=== PATIENT | male | born 1990 | race Caucasian/White ===

== ENCOUNTER 2019-05-14 09:06 | Emergency (ER) | payer OTHER, SELFPAY ==
[2019-05-14 09:15] VITALS: BP 138/87; PULSE 82; RESP 18; TEMP 36.7; O2SAT 100
--- NOTE | 2019-05-14 09:32 | ED.URI ---
HPI - URI/Sore Throat General Chief Complaint: Upper Respiratory Infection Stated Complaint: cough History of Present Illness HPI Narrative: This is a 29-year-old male comes in complaining of having a cough patient states that the cough is more so at nighttime and he has a first thing when he wakes up in the morning it may be intermittently not consistently patient states that he when he does go into a coughing spell he does have some shortness of breath patient is currently a pack-a-day smoker denies any fever nausea vomiting diarrhea has not been out of the country. Related Data Home Medications Medication Instructions Recorded Confirmed lisinopril 20 mg PO DAILY 02/23/19 02/23/19 Allergies Allergy/AdvReac Type Severity Reaction Status Date / Time No Known Allergies Allergy Verified 02/23/19 08:47 Review of Systems Review of Systems: Narrative: CONSTITUTIONAL: Denies fever, chills, or sweats. EYES: Denies visual changes, redness, or discharge. ENT: Denies rhinorrhea, congestion, sore throat, or otalgia. CARDIOVASCULAR:Denies chest pain, palpitations, or edema. RESPIRATORY: Reports cough or dyspnea. GASTROINTESTINAL: Denies abdominal pain, nausea, vomiting, or diarrhea. GENITOURINARY: Denies dysuria or hematuria. SKIN:[Denies rash or itching. MUSCULOSKELETAL:Denies back pain, joint pain, or myalgia. NEUROLOGIC: Denies headache, numbness, or weakness. PSYCHIATRIC:Denies anxiety or depression PMF Past Medical History Medical History (Updated 05/14/19 @ 09:50 by Cody Miramontes NP) HTN (hypertension) Social History Social History (Updated 02/23/19 @ 08:52 by SOWMYA Jauregui) Smoking packs per day: 0.5 Smoking cigarettes per day: 10.0 Smoking status: Current every day smoker Comments At time as signature, I have reviewed and agree with nursing past medical, social, surgical and family history. Please see nursing chart for further information. There is no relevant family history pertinent to the presenting complaint. Exam Narrative: Exam Narrative: GENERAL:Well-appearing, well-nourished, and in no acute distress. HEAD:Normocephalic, atraumatic. EYES: PERRLA and EOMI. ENT: Nares clear, no rhinorrhea or epistaxis. Mucous membranes moist. Pharyngeal erythema pale boggy turbinate bilateral nares NECK: Supple. CHEST: Clear to auscultation. No respiratory distress. HEART: Regular rate and rhythm. No murmur heard. Normal peripheral pulses. ABDOMEN: Soft, nontender, nondistended, normal active bowel sounds. EXTREMITIES: Normal range of motion. No edema. SKIN: Warm, dry, no rash. NEURO: No focal deficits. Alert and oriented x3. Course Vital Signs Vital signs: Vital Signs Temperature 98.0 F 05/14/19 09:15 Pulse Rate 82 05/14/19 09:15 Respiratory Rate 18 05/14/19 09:15 Blood Pressure 138/87 05/14/19 09:15 Pulse Oximetry 100 05/14/19 09:15 Temperature 98.0 F 05/14/19 09:15 Pulse Rate 82 05/14/19 09:15 Respiratory Rate 18 05/14/19 09:15 Blood Pressure 138/87 05/14/19 09:15 Pulse Oximetry 100 05/14/19 09:15 MDM - URI/Sore Throat Differential Diagnosis Differential diagnosis: Likely upper respiratory infection, otitis media, sinusitis, viral infection and pharyngitis Discharge Plan Discharge Clinical Impression: Rhinosinusitis Upper respiratory infection Qualifiers: URI type: unspecified viral URI Qualified Code(s): J06.9 - Acute upper respiratory infection, unspecified Patient Disposition: Home, Self-Care Condition: Stable Instructions: Antibiotic Form, Upper Respiratory Infection (ED), Rhinosinusitis (ED) Additional Instructions: Please may sure you start taking your allergy medication Prescriptions: New albuterol sulfate [Ventolin HFA] 90 mcg/actuation HFA aerosol inhaler 2 puff INHALATION QID PRN (Reason: shortness of breath or wheezing) Qty: 8.5 RF: 0 fluticasone propionate [Flonase Allergy Relief] 50 mcg/actuation s
== END 2019-05-14 10:10 | disposition home or self-care (01) ==
PROVIDERS: Emergency Provider Nurse Practitioner Family; PCP Nurse Practitioner Family
DX: J31.0 Chronic rhinitis (principal); J32.9 Chronic sinusitis, unspecified; J06.9 Acute upper respiratory infection, unspecified; F17.210 Nicotine dependence, cigarettes, uncomplicated
CPT/HCPCS: 99213; G0463

== ENCOUNTER 2019-11-13 17:04 | Emergency (ER) | payer OTHER, SELFPAY ==
--- NOTE | 2019-11-13 17:10 | ED.GENADULT ---
HPI - General Adult General Chief complaint: Eye Problems Stated complaint: right eye pain Time Seen by Provider: 11/13/19 17:10 Source: patient Mode of arrival: ambulatory Limitations: no limitations History of Present Illness HPI narrative: 29-year-old male patient presents the [facility] care with complaints of right eye pain that started this morning when he woke up. 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 Patient denies having anything going to his eye that he is aware of. However he states that when he woke up this morning he started having pain, clear discharge coming from the right eye, as well as itching to the right eye. Patient denies wearing glasses or contacts. Patient states he did have safety glasses on when he was welding yesterday. Patient denies any fevers, body aches or chills. Patient states he does have sensitivity to the light. Related Data Home Medications Medication Instructions Recorded Confirmed lisinopril 20 mg PO DAILY 02/23/19 11/13/19 Allergies Allergy/AdvReac Type Severity Reaction Status Date / Time No Known Allergies Allergy Verified 11/13/19 17:21 Review of Systems Review of Systems: Narrative: CONSTITUTIONAL: Denies fever, chills, or sweats. EYES: Positive blurry vision, redness, itching and clear discharge from the right eye since this morning. ENT: Denies rhinorrhea, congestion, sore throat, or otalgia. CARDIOVASCULAR: Denies chest pain, palpitations, or edema. RESPIRATORY: Denies cough or dyspnea. GASTROINTESTINAL: Denies abdominal pain, nausea, vomiting, or diarrhea. GENITOURINARY: Denies dysuria or hematuria. SKIN: Denies rash or itching. MUSCULOSKELETAL: Denies back pain, joint pain, or myalgia. NEUROLOGIC: Denies headache, numbness, or weakness. PSYCHIATRIC: Denies anxiety or depression. [facility] Past Medical History Medical History HTN (hypertension) Social History Social History Smoking packs per day: 0.5 Smoking cigarettes per day: 10.0 Smoking status: Current every day smoker Gender identity (if verbalized by the patient): Male Comments At the time of my signature I agree with nursing past medical history, surgical, social, and family history. There is no relevant family history pertinent to the presenting complaint. Exam Narrative: Exam Narrative: GENERAL: Well-appearing, well-nourished, and in no acute distress. HEAD: Normocephalic, atraumatic. EYES: PERRLA and EOM intact without limitation or complaint of pain, no periorbital soft tissue swelling ,no erythema, warmth or tenderness noted, no obvious deformity. No crusting or swelling.clear tearing and draining.positive photophobia. No nystagmus No FB or lesion on lid eversion. Corneas grossly clear, no obvious FB or hyphens/hypopyon. injection to sclera of right eye. Lids and lashes clear. Patient does have a very small corneal abrasion noted to the 7:00 area of the right cornea when examined under the Pollock lamp.. ENT: Nares clear, no rhinorrhea or epistaxis. Mucous membranes moist. NECK: Supple. No lymphadenopathy CHEST: Clear to auscultation. No respiratory distress. HEART: Regular rate and rhythm. No murmur heard. Normal peripheral pulses. ABDOMEN: Soft, nontender, nondistended, normal active bowel sounds. EXTREMITIES: Normal range of motion. No edema. SKIN: Warm, dry, no rash. NEURO: No focal deficits. Alert and oriented x3. Course Vital Signs Vital signs: Vital Signs Temperature 37.4 C 11/13/19 17:18 Pulse Rate 72 11/13/19 17:18 Respiratory Rate 16 11/13/19 17:18 Blood Pressure 151/91 H 11/13/19 17:18 Pulse Oximetry 99 11/13/19 17:18 Temperature 37.4 C 11/13/19 17:18 Pulse Rate 72 11/13/19 17:18 Respiratory Rate 16 11/13/19 17:18 Blood Pressure 151/91 H 11/13/19 17:18 Pulse Oximetry 99 11/13/19 17:18 Vital signs reviewed. T
[2019-11-13 17:18] VITALS: BP 151/91; PULSE 72; RESP 16; TEMP 37.4; O2SAT 99
== END 2019-11-13 17:39 | disposition home or self-care (01) ==
PROVIDERS: Emergency Provider Nurse Practitioner Family
DX: S05.01XA Injury of conjunctiva and corneal abrasion without foreign body, right eye, initial encounter (principal); X58.XXXA Exposure to other specified factors, initial encounter; I10 Essential (primary) hypertension; F17.210 Nicotine dependence, cigarettes, uncomplicated
CPT/HCPCS: 99213; A9270; G0463

== ENCOUNTER 2020-03-08 07:00 | Outpatient (NON) | payer OTHER, SELFPAY ==
[2020-03-08 19:17] LABS: SARS-CoV-2 RNA PCR Negative
== END 2020-03-08 07:01 ==
PROVIDERS: Visit Provider Nurse Practitioner Family
DX: R05 Cough (principal); R53.83 Other fatigue
CPT/HCPCS: C9803; U0003; U0005

== ENCOUNTER 2020-10-12 15:51 | Emergency (ER) | payer BC, SELFPAY ==
[2020-10-12 16:01] VITALS: BP 141/95; PULSE 88; RESP 16; TEMP 37.3; O2SAT 100
--- NOTE | 2020-10-12 16:06 | ED.URI ---
HPI - URI/Sore Throat General Chief Complaint: Upper Respiratory Infection Stated Complaint: Sore Throat Time Seen by Provider: 10/12/20 16:06 Source: patient and RN notes reviewed Mode of arrival: ambulatory Limitations: no limitations History of Present Illness HPI Narrative: 30-year-old male presents concern for sore throat, fever up to 101.7, body aches. Reports his son had strep throat last week. Reports he has been vaccinated for Covid. He denies rhinorrhea, nasal congestion, cough, shortness of breath, loss of sense of taste or smell. Reports he has been taking Coricidin. MD elicited complaint: sore throat Related Data Home Medications Medication Instructions Recorded Confirmed lisinopril 20 mg PO DAILY 02/23/19 10/12/20 Allergies Allergy/AdvReac Type Severity Reaction Status Date / Time No Known Allergies Allergy Verified 10/12/20 16:09 Review of Systems Review of Systems: CONSTITUTIONAL: Reports malaise, fever. Chills, sweats EYES: Denies visual changes, redness, or discharge. ENT: Denies rhinorrhea, congestion, sinus pain, otalgia. Reports sore throat. CARDIOVASCULAR: Denies chest pain, palpitations, or edema. RESPIRATORY: Denies cough or dyspnea. GASTROINTESTINAL: Denies abdominal pain, nausea, vomiting, diarrhea SKIN: Denies rash or itching. MUSCULOSKELETAL: Reports myalgia. NEUROLOGIC: Denies headache. All systems reviewed & are unremarkable except as noted in HPI and below PMFSH Past Medical History Medical History (Updated 10/12/20 @ 16:20 by Ronda Arita NP) HTN (hypertension) Social History Social History Smoking packs per day: 0.5 Smoking cigarettes per day: 10.0 Smoking status: Current every day smoker Gender identity (if verbalized by the patient): Male Comments At time of signature, agree with nursing past medical, surgical, social and family history. There is no relevant family history pertinent to the presenting complaint Exam Narrative: GENERAL: Well-appearing, well-nourished, and in no acute distress. HEAD: Normocephalic EYES: PERRLA, conjunctivae clear ENT: Nares clear, no discharge. Mucous membranes moist. TM pearly vora with dull light reflex bilaterally; no tragal tenderness. Oropharynx erythematous without lesions. Tonsils enlarged and without exudate, no drooling, no hoarseness, no trismus, uvula midline. NECK: Supple. No lymphadenopathy CHEST: Clear to auscultation, breath sounds equal. No wheezing, rhonchi, rales, or stridor. No respiratory distress, speaks in full sentences. HEART: Regular rate and rhythm. No murmur heard. SKIN: Warm, dry, no rash. NEURO: Alert and oriented x3. PSYCH: Normal mood and affect Course Course Emergency Course: Patient is aware of diagnosis, understands and agrees to treatment plan. Anticipatory guidance given. Patient agrees to follow-up as directed and is aware of reasons to seek care at the emergency department. Portions of this record may have been created with voice recognition software Vital Signs Vital signs: Vital Signs Temperature 99.2 F 10/12/20 16:01 Pulse Rate 88 10/12/20 16:01 Respiratory Rate 16 10/12/20 16:01 Blood Pressure 141/95 H 10/12/20 16:01 Pulse Oximetry 100 10/12/20 16:01 Temperature 99.2 F 10/12/20 16:01 Pulse Rate 88 10/12/20 16:01 Respiratory Rate 16 10/12/20 16:01 Blood Pressure 141/95 H 10/12/20 16:01 Pulse Oximetry 100 10/12/20 16:01 Reviewed. Patient has history of hypertension MDM - URI/Sore Throat MDM Narrative Medical decision making narrative: Differential diagnosis considered: Pena virus, strep pharyngitis, allergic rhinitis, upper respiratory tract infection, sinusitis, rhinosinusitis, nasopharyngitis. viral pharyngitis, otitis media, otitis externa, pneumonia, bronchitis, viral cough syndrome, viral syndrome, and influenza. Exam findings show no acute concerns or changes; patient is non-toxic
== END 2020-10-12 16:28 | disposition home or self-care (01) ==
PROVIDERS: Emergency Provider Nurse Practitioner
DX: J03.90 Acute tonsillitis, unspecified (principal); I10 Essential (primary) hypertension
CPT/HCPCS: 87081; 87880; 99213; G0463